=== PATIENT | female | born 1990 | race Caucasian/White ===

== ENCOUNTER 2017-03-18 17:03 | Emergency (ER) | payer SELFPAY ==
[~2017-03-18] VITALS: Ht 157.5 cm; Wt 75.8 kg
[2017-03-18] MEDS ORDERED: KEFLEX500 MG PO (19:29)
[2017-03-18] MEDS ORDERED: NORCO 5-325 TA1 EACH PO (19:29)
== END 2017-03-18 19:53 | disposition home or self-care (01) ==
LOC: ED 17:03
DX: L02.612 Cutaneous abscess of left foot (principal); L60.0 Ingrowing nail; F17.200 Nicotine dependence, unspecified, uncomplicated
CPT/HCPCS: 10060; 99283

== ENCOUNTER 2017-10-27 00:19 | Emergency (ER) | payer OTHER ==
[~2017-10-27] VITALS: Ht 157.5 cm; Wt 75.8 kg
[~2017-10-27 00:19] MED LIST: KEFLEX500 MG PO; NORCO 5-325 TA1 EACH PO
== END 2017-10-27 01:23 | disposition home or self-care (01) ==
LOC: ED 00:19
DX: S16.1XXA Strain of muscle, fascia and tendon at neck level, initial encounter (principal); F19.10 Other psychoactive substance abuse, uncomplicated; V49.9XXA Car occupant (driver) (passenger) injured in unspecified traffic accident, initial encounter; F17.200 Nicotine dependence, unspecified, uncomplicated
CPT/HCPCS: 72040; 99283

== ENCOUNTER 2017-11-13 13:34 | Emergency (ER) | payer SELFPAY ==
[~2017-11-13] VITALS: Ht 157.5 cm; Wt 74.4 kg
== END 2017-11-13 15:40 | disposition home or self-care (01) ==
LOC: ED 13:34
DX: Z00.8 Encounter for other general examination (principal); F17.200 Nicotine dependence, unspecified, uncomplicated
CPT/HCPCS: 80053; 80176; 81001; 84443; 84703; 85025; 99283; G0480

== ENCOUNTER 2021-08-07 13:50 | Emergency (ER) | payer OTHER ==
[~2021-08-07] VITALS: Ht 157.5 cm; Wt 108.0 kg
--- OUTSIDE RECORDS SUMMARY | 2021-08-07 13:54 | XMS ---
PreManage Notification: OBDULIO VALENCIA Security [employer] Events No recent Security Events currently on file CRITERIA MET - Group Notification - PDMP CARE PROVIDERS VAUGHN STOCK Physician Pharmacy Graduate Intern Current PHONE: Unknown Lucia has no Care Guidelines for this patient. [place] VISIT COUNT (12 MO.) 1 Emelia Barroso TOTAL 2 NOTE: Visits indicate total known visits. ED/UCC VISIT TRACKING (12 MO.) 08/07/2021 13:52 NICK Hernandez [place] TYPE: Emergency COMPLAINT: - R FLANK PAIN, DENTAL PROBLEM 01/29/2021 19:57 Alizaurvashi Diego SMART TYPE: Emergency COMPLAINT: - KIDNEY PAIN_KIDNEY PAIN - UNSPECIFIED ABDOMINAL PAIN - DORSALGIA UNSPECIFIED - OTHER MALAISE DIAGNOSES: 0. Unspecified abdominal pain 1. Tubulo-interstitial nephritis, not specified as acute or chronic 5. Fever, unspecified INPATIENT VISIT TRACKING (12 MO.) No inpatient visits to display in this time frame [email or web address]
[2021-08-07] MEDS ORDERED: AMOXICILLIN500 MG PO (14:53)
[2021-08-07] MEDS ORDERED: CHLORHEXIDINE473 ML MM (14:53)
[2021-08-07] MEDS ORDERED: ONDANSETRON ODT8 MG PO (17:40)
== END 2021-08-07 18:04 | disposition home or self-care (01) ==
LOC: ED 13:50
DX: B34.9 Viral infection, unspecified (principal); F17.200 Nicotine dependence, unspecified, uncomplicated; Z79.899 Other long term (current) drug therapy
CPT/HCPCS: 36415; 74177; 80048; 81001; 84703; 85025; 96374; 96375; 99284-25; A9270; J1885; J2405; J7030; Q9967

== ENCOUNTER 2021-12-21 15:55 | Emergency (ER) | payer OTHER ==
[~2021-12-21] VITALS: Ht 157.5 cm; Wt 107.0 kg
[~2021-12-21 15:55] MED LIST changes: +AMOXICILLIN500 MG PO; +CHLORHEXIDINE473 ML MM; +ONDANSETRON ODT8 MG PO
--- OUTSIDE RECORDS SUMMARY | 2021-12-21 16:01 | XMS ---
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 E.[place] VISIT COUNT (12 MO.) 1 Emelia Barroso TOTAL 3 NOTE: Visits indicate total known visits. ED/UCC VISIT TRACKING (12 MO.) 12/21/2021 15:59 NICK Gloria TYPE: Emergency COMPLAINT: - HEAD INJURY 08/07/2021 13:52 NICK Gloria TYPE: Emergency COMPLAINT: - R FLANK PAIN, DENTAL PROBLEM DIAGNOSES: - Viral infection, unspecified - Low back pain, unspecified - Other rn long term care (current) drug therapy - Nicotine dependence, unspecified, uncomplicated 01/29/2021 19:57 Emelia SMART TYPE: Emergency COMPLAINT: - KIDNEY PAIN_KIDNEY PAIN - DORSALGIA UNSPECIFIED - UNSPECIFIED ABDOMINAL PAIN - OTHER MALAISE DIAGNOSES: 0. Unspecified abdominal pain 1. Tubulo-interstitial nephritis, not specified as acute or chronic 5. Fever, unspecified INPATIENT VISIT TRACKING (12 MO.) No inpatient visits to display in this time frame [id number]
[2021-12-21] MEDS ORDERED: SERTRALINE HCL25 MG PO (16:58)
== END 2021-12-21 20:25 | disposition home or self-care (01) ==
LOC: ED 15:55
DX: S09.90XA Unspecified injury of head, initial encounter (principal); S63.502A Unspecified sprain of left wrist, initial encounter; F17.200 Nicotine dependence, unspecified, uncomplicated; X58.XXXA Exposure to other specified factors, initial encounter
CPT/HCPCS: 70450; 73110; 99284-25; A9270